=== PATIENT | male | born 1995 | race Caucasian/White ===

== ENCOUNTER 2022-03-28 21:28 | Emergency (ER) | payer BC | END 2022-03-29 01:03 | disposition home or self-care (01) | LOC: JD.ED 21:28 | DX: R31.9 Hematuria, unspecified (principal); Z88.1 Allergy status to other antibiotic agents; Z88.8 Allergy status to other drugs, medicaments and biological substances | CPT/HCPCS: 36415; 80053; 81001; 85025; 85610; 85730; 87086; 99283 ==

== ENCOUNTER 2025-05-01 12:37 | Emergency (ER) | payer BC ==
[2025-05-01] MEDS: EPINEPHrine 1 MG/ML SDV IM ONE (13:05)
== END 2025-05-01 14:10 | disposition home or self-care (01) ==
LOC: JD.ED 12:37
DX: T63.461A Toxic effect of venom of wasps, accidental (unintentional), initial encounter (principal); Z88.1 Allergy status to other antibiotic agents; Z88.8 Allergy status to other drugs, medicaments and biological substances
CPT/HCPCS: 96372; 99282; J0169; J7512; Q0163